=== PATIENT | female | born 1980 | race Caucasian/White ===

== ENCOUNTER 2019-05-11 17:32 | Outpatient (CLI) | payer OTHER | END 2019-05-11 20:15 | disposition home or self-care (01) | LOC: NST 17:32 | DX: Z34.83 Encounter for supervision of other normal pregnancy, third trimester (principal) ==

== ENCOUNTER 2019-08-04 09:26 | Inpatient (IN) | payer OTHER ==
[~2019-08-04] VITALS: Ht 165.1 cm; Wt 81.2 kg
[2019-09-01] MEDS ORDERED: PRENATAL TABLE1 EACH PO (08:11)
[2019-09-01] MEDS ORDERED: IRON325 MG PO (08:12)
== END 2019-09-03 13:52 | disposition home or self-care (01) | DRG 807 ==
LOC: LDR 09-01 06:34 → OB/GYN 09-01 12:30
PROVIDERS: ADMIT Obstetrics & Gynecology Maternal & Fetal Medicine
PROC: 10E0XZZ Delivery of Products of Conception, External Approach (ICD-10-PCS; principal; 2019-09-01)
PROC: 0HQ9XZZ Repair Perineum Skin, External Approach (ICD-10-PCS; 2019-09-01)
PROC: 3E033VJ Introduction of Other Hormone into Peripheral Vein, Percutaneous Approach (ICD-10-PCS; 2019-09-01)
PROC: 4A1HXCZ Monitoring of Products of Conception, Cardiac Rate, External Approach (ICD-10-PCS; 2019-09-01)
DX: O70.0 First degree perineal laceration during delivery (principal); Z37.0 Single live birth; Z3A.39 39 weeks gestation of pregnancy; Z22.330 Carrier of Group B streptococcus

== ENCOUNTER 2019-08-25 08:52 | Outpatient (CLI) | payer OTHER | END 2019-08-25 10:15 | disposition home or self-care (01) | LOC: NST 08:52 | DX: O26.893 Other specified pregnancy related conditions, third trimester (principal); R10.2 Pelvic and perineal pain; Z3A.38 38 weeks gestation of pregnancy ==

== ENCOUNTER 2019-08-29 10:34 | Outpatient (CLI) | payer OTHER | END 2019-08-29 11:33 | disposition home or self-care (01) | LOC: NST 10:34 | DX: Z34.83 Encounter for supervision of other normal pregnancy, third trimester (principal) ==